=== PATIENT | female | born 1950 | race Caucasian/White ===

== ENCOUNTER 2024-03-08 18:46 | Inpatient (IN) | payer MEDICARE, MEDICAID ==
[~2024-03-08] VITALS: Ht 149.9 cm; Wt 47.6 kg
[2024-03-08 20:17] LABS: BASOPHILS % (AUTO) 0.6 % (0.0-2.0); EOSINOPHILS # (AUTO) 0.2 K/uL (0.0-0.7); EOSINOPHILS % (AUTO) 3.9 % (0.0-6.0); HEMATOCRIT 32 % (33-45); HEMOGLOBIN 10.7 g/dL (11.5-14.8); LYMPHOCYTES # (AUTO) 1.8 K/uL (0.8-4.8); LYMPHOCYTES % (AUTO) 40.1 % (20.0-44.0); MEAN CORPUSCULAR HEMOGLOBIN 31 PG (26.0-33.0); MEAN CORPUSCULAR HGB CONC 34 g/dl (31.0-36.0); MEAN CORPUSCULAR VOLUME 93 fL (82-100); MONOCYTES # (AUTO) 0.4 K/uL (0.1-1.30); NEUTROPHILS # (AUTO) 2.1 K/uL (1.8-8.9); NEUTROPHILS % (AUTO) 47.4 % (43.0-81.0); PLATELET COUNT (AUTO) 123 K/uL (150-450); RED BLOOD CELL COUNT(AUTO) 3.42 MIL/uL (4.0-5.2); RED CELL DISTRIBUTION WIDTH 13.6 % (11.5-15.0); WHITE BLOOD COUNT (AUTO) 4.4 K/uL (4.3-11.0)
[2024-03-08 21:06] LABS: CARBON DIOXIDE 29 mmol/L (21-32); CHLORIDE 109 mmol/L (98-107); POTASSIUM 4.7 mmol/L (3.5-5.1); SODIUM SERUM 144 mmol/L (136-145)
[2024-03-08 21:07] LABS: ALANINE AMINOTRANSFERASE 11 U/L (12-78); ALKALINE PHOSPHATASE 46 U/L (46-116); ASPARTATE AMINOTRANSFERASE 18 U/L (15-37); BILIRUBIN,DIRECT 0.1 mg/dL (0.0-0.2); BILIRUBIN,TOTAL 0.4 mg/dL (0.2-1.0); CREATININE 1.1 mg/dL (0.6-1.3); GLUCOSE 81 mg/dL (74-106); UREA NITROGEN, BLOOD 10 mg/dL (7-18)
[2024-03-08 21:08] LABS: ACETAMINOPHEN 1 ug/ml (10-30); ALBUMIN 2.7 g/dL (3.4-5.0); ALCOHOL, BLOOD < 3 mg/dL (0-10); SALICYLATE 6.3 mg/dL (2.8-20.0); TOTAL PROTEIN, SERUM 5.4 g/dL (6.4-8.2)
[2024-03-08 21:20] LABS: APPEARANCE,URINE CLEAR (CLEAR); BILIRUBIN,URINE NEGATIVE (NEGATIVE); BLOOD, URINE NEGATIVE Ery/uL (NEGATIVE); COLOR,URINE DARK YELLOW (YELLOW); KETONES,URINE NEGATIVE (NEGATIVE); LEUKOCYTE ESTERASE ,URINE NEGATIVE (NEGATIVE); NITRITE, URINE NEGATIVE (NEGATIVE); PROTEIN,URINE NEGATIVE (NEGATIVE); UGLUCOSE NEGATIVE (NEGATIVE)
[2024-03-08 21:24] LABS: ADD URINE CULTURE NO; BACTERIA,URINE 1+ /HPF (None Seen); MAGNESIUM 1.8 mg/dL (1.8-2.4); RBC,URINE 0-2 /HPF (0-2); WBC,URINE 0-2 /HPF (0-3)
[2024-03-08 21:26] LABS: AMPHETAMINE, URINE NEGATIVE (NEGATIVE); BARBITURATE, URINE NEGATIVE (NEGATIVE); BENZODIAZEPINE, URINE NEGATIVE (NEGATIVE); COCCAINE, URINE NEGATIVE (NEGATIVE)
[2024-03-08 21:27] LABS: CANNABINOID, URINE POSITIVE (NEGATIVE); OPIATE, URINE POSITIVE (NEGATIVE); PHENCYCLIDINE SCREEN,URINE NEGATIVE (NEGATIVE)
[2024-03-08] MEDS ORDERED: MAG HYDROX/AL HYDROX/SIMETH 30 ML UDC PO PRN (22:30)
[2024-03-08] MEDS ORDERED: Z GUARD REMEDY 4 OZ OINT TP PRN (22:30)
[2024-03-08] MEDS ORDERED: ZOLPIDEM TARTRATE 5 MG TABLET PO PRN (22:30)
[2024-03-08] MEDS ORDERED: ACETAMINOPHEN 325 MG TABLET PO PRN (22:30)
[2024-03-08] MEDS ORDERED: ONDANSETRON HCL/PF 4 MG/2 ML VIAL IVP PRN (22:30)
[2024-03-08] MEDS ORDERED: MAGNESIUM HYDROXIDE 30 ML UDC PO PRN (22:30)
[2024-03-09] VITALS (22 sets, daily range): BP systolic 114–148; BP diastolic 60–99; TEMP 97–98.5; O2SAT 92–98
[2024-03-09] MEDS: ENOXAPARIN SODIUM 30 MG/0.3 ML DISP.SYRIN SQ SCH (00:35)
[2024-03-09 04:12] LABS: EOSINOPHILS # (AUTO) 0.2 K/uL (0.0-0.7); EOSINOPHILS % (AUTO) 4.3 % (0.0-6.0); HEMATOCRIT 38 % (33-45); HEMOGLOBIN 12.5 g/dL (11.5-14.8); LYMPHOCYTES # (AUTO) 2.2 K/uL (0.8-4.8); LYMPHOCYTES % (AUTO) 44.8 % (20.0-44.0); MEAN CORPUSCULAR HEMOGLOBIN 31 PG (26.0-33.0); MEAN CORPUSCULAR HGB CONC 33 g/dl (31.0-36.0); MEAN CORPUSCULAR VOLUME 93 fL (82-100); MONOCYTES # (AUTO) 0.3 K/uL (0.1-1.30); MONOCYTES % (AUTO) 6.5 % (2.0-12.0); NEUTROPHILS # (AUTO) 2.1 K/uL (1.8-8.9); NEUTROPHILS % (AUTO) 43.4 % (43.0-81.0); PLATELET COUNT (AUTO) 140 K/uL (150-450); RED BLOOD CELL COUNT(AUTO) 4.03 MIL/uL (4.0-5.2); RED CELL DISTRIBUTION WIDTH 13.5 % (11.5-15.0); WHITE BLOOD COUNT (AUTO) 4.8 K/uL (4.3-11.0)
[2024-03-09 04:38] LABS: ALANINE AMINOTRANSFERASE 11 U/L (12-78); ALBUMIN 3.2 g/dL (3.4-5.0); ALKALINE PHOSPHATASE 55 U/L (46-116); ASPARTATE AMINOTRANSFERASE 20 U/L (15-37); BILIRUBIN,DIRECT 0.1 mg/dL (0.0-0.2); BILIRUBIN,TOTAL 0.4 mg/dL (0.2-1.0); CALCIUM, SERUM 8.5 mg/dL (8.5-10.1); CARBON DIOXIDE 29 mmol/L (21-32); CHLORIDE 108 mmol/L (98-107); CREATININE 1.1 mg/dL (0.6-1.3); GLUCOSE 84 mg/dL (74-106); NT-PRO BNP 510 pg/mL (0-125); PHOSPHORUS 3.8 mg/dL (2.5-4.9); POTASSIUM 4.2 mmol/L (3.5-5.1); SODIUM SERUM 144 mmol/L (136-145); TOTAL PROTEIN, SERUM 6.5 g/dL (6.4-8.2); UREA NITROGEN, BLOOD 10 mg/dL (7-18)
[2024-03-09 09:20] LABS: THYROID STIMULATING HORMONE 0.61 uIU/mL (0.358-3.74)
[2024-03-09] MEDS: PANTOPRAZOLE 40 MG TABLET.DR PO SCH (09:23)
[2024-03-09] MEDS ORDERED: LEVO75TA7 PO (13:52)
[2024-03-09] MEDS ORDERED: LORA-258 PO (13:52)
[2024-03-09] MEDS ORDERED: [UNRECOGNIZED DRUG - CODE] PO (13:52)
[2024-03-09] MEDS ORDERED: LAMO100T17 PO (13:52)
[2024-03-09] MEDS ORDERED: ASPI-1420 PO (13:52)
[2024-03-09] MEDS ORDERED: ARIP10TA57 PO (13:52)
[2024-03-09] MEDS ORDERED: DICL100G34 TP (13:52)
[2024-03-09] MEDS ORDERED: SACC250C9 PO (13:52)
[2024-03-09] MEDS ORDERED: CYAN100096 PO (13:52)
[2024-03-09] MEDS ORDERED: ROSU20TA2 PO (13:52)
[2024-03-09] MEDS ORDERED: TRAZ150T75 PO (13:52)
[2024-03-09] MEDS ORDERED: ESTR42.5 VG (13:52)
[2024-03-09] MEDS ORDERED: MODAFINIL PO (13:52)
[2024-03-09] MEDS ORDERED: PROP20TA7 PO (13:52)
[2024-03-09] MEDS ORDERED: MOME13HF2 IH (13:52)
[2024-03-09] MEDS ORDERED: FOLI0.4T6 PO (13:52)
[2024-03-09] MEDS ORDERED: OMEP20CA15 PO (13:52)
[2024-03-09] MEDS ORDERED: MULT-754 PO (13:52)
[2024-03-09] MEDS ORDERED: [UNRECOGNIZED DRUG - CODE] PO (13:52)
[2024-03-09] MEDS ORDERED: ALEN70TA80 PO (13:52)
[2024-03-09] MEDS ORDERED: ESCI20TA PO (13:52)
[2024-03-10] VITALS: BP 137/83; TEMP 97.7; O2SAT 96
[2024-03-10 00:05] VITALS: BP 137/83; TEMP 97.7; O2SAT 96
[2024-03-10 04:00] VITALS: BP 135/78; TEMP 97.7; O2SAT 96
[2024-03-10 04:05] VITALS: BP 135/78; TEMP 97.7; O2SAT 95
[2024-03-10 07:19] LABS: BASOPHILS % (AUTO) 0.5 % (0.0-2.0); EOSINOPHILS # (AUTO) 0.1 K/uL (0.0-0.7); HEMATOCRIT 36 % (33-45); HEMOGLOBIN 12.1 g/dL (11.5-14.8); LYMPHOCYTES # (AUTO) 1.3 K/uL (0.8-4.8); LYMPHOCYTES % (AUTO) 25.6 % (20.0-44.0); MEAN CORPUSCULAR HEMOGLOBIN 31 PG (26.0-33.0); MEAN CORPUSCULAR HGB CONC 34 g/dl (31.0-36.0); MEAN CORPUSCULAR VOLUME 92 fL (82-100); MONOCYTES # (AUTO) 0.3 K/uL (0.1-1.30); MONOCYTES % (AUTO) 5.5 % (2.0-12.0); NEUTROPHILS # (AUTO) 3.3 K/uL (1.8-8.9); NEUTROPHILS % (AUTO) 66.4 % (43.0-81.0); PLATELET COUNT (AUTO) 152 K/uL (150-450); RED BLOOD CELL COUNT(AUTO) 3.93 MIL/uL (4.0-5.2); RED CELL DISTRIBUTION WIDTH 13.6 % (11.5-15.0)
[2024-03-10 07:43] LABS: ALANINE AMINOTRANSFERASE 15 U/L (12-78); ALBUMIN 2.8 g/dL (3.4-5.0); ALKALINE PHOSPHATASE 47 U/L (46-116); ASPARTATE AMINOTRANSFERASE 20 U/L (15-37); BILIRUBIN,TOTAL 0.4 mg/dL (0.2-1.0); CALCIUM, SERUM 8.5 mg/dL (8.5-10.1); CARBON DIOXIDE 27 mmol/L (21-32); CHLORIDE 109 mmol/L (98-107); CREATININE 0.9 mg/dL (0.6-1.3); GLUCOSE 91 mg/dL (74-106); MAGNESIUM 1.9 mg/dL (1.8-2.4); PHOSPHORUS 3.3 mg/dL (2.5-4.9); POTASSIUM 3.9 mmol/L (3.5-5.1); SODIUM SERUM 145 mmol/L (136-145); TOTAL PROTEIN, SERUM 5.9 g/dL (6.4-8.2); UREA NITROGEN, BLOOD 10 mg/dL (7-18)
[2024-03-10 08:00] VITALS: BP 151/67; TEMP 98.6; O2SAT 94
== END 2024-03-10 16:20 | DRG 280 ==
LOC: ER 18:53 → ICU 23:00 → TELE 03-09 18:04
PROVIDERS: ADMIT Nurse Practitioner Family; ATTEND Internal Medicine
DX: R00.1 Bradycardia, unspecified (principal); G93.41 Metabolic encephalopathy; I21.A1 Myocardial infarction type 2; E46 Unspecified protein-calorie malnutrition; I50.32 Chronic diastolic (congestive) heart failure; E83.51 Hypocalcemia; F12.10 Cannabis abuse, uncomplicated; D64.9 Anemia, unspecified; E88.09 Other disorders of plasma-protein metabolism, not elsewhere classified; M20.41 Other hammer toe(s) (acquired), right foot; M20.42 Other hammer toe(s) (acquired), left foot; Z88.2 Allergy status to sulfonamides; M21.172 Varus deformity, not elsewhere classified, left ankle; M21.171 Varus deformity, not elsewhere classified, right ankle; J44.9 Chronic obstructive pulmonary disease, unspecified; Z74.01 Bed confinement status; Z68.21 Body mass index [BMI] 21.0-21.9, adult
CPT/HCPCS: 36415; 71045-TC; 80048-TC; 80053-TC; 80061-TC; 80076-TC; 81001; 82728-TC; 83540-TC; 83735-TC; 83880; 84100-TC; 84439-TC; 84443-TC; 84484-TC; 85025-TC; 87081-TC; 93307-TC; G0378; G0480; J1650